=== PATIENT | female | born 1985 | race Caucasian/White ===

== ENCOUNTER 2019-02-06 13:30 | Emergency (ER) | payer BC ==
--- NOTE | 2019-02-06 14:52 | PDOC ---
Attending Attestation - Resident Resident Name: uRben Romero - ED Attending Attestation I have performed the following: I have examined & evaluated the patient, The case was reviewed & discussed with the resident, I agree w/resident's findings & plan, Exceptions are as noted - HPI HPI: 02/06/19 16:31 33yo female with a 3 week hx of L sided cp. No f/c. No cough. No assoc sob. No trauma. States she has been able to work out over the last 3 weeks without inducing the pain or worsening the pain. Pt denies abd pain. States she did have nausea yesterday after eating wings. Pt states yesterday she did feel a burning sensation in her chest, however her cp is not always assoc with eating. Pt states sometimes it is worse when laying flat at night. Pt states she has had anixety and felt stressed in the past, states her job is stressful. Pt denies v/d. No abd pain today. Pt is nontoxic in appearance. Pt denies palpitations. No pleuritic component to pain. PERC negative. No fam hx of sudden cardiac or cardiac problems. No fam hx of PE. - Physicial Exam PE: 02/06/19 16:33 Gen: aaox3, nad neck: no thyromegaly heart: +s1s2 reg, no chest wall ttp lungs: cta b/l abd: soft, nt/nd +bs ext: no c/c/e - Medical Decision Making 02/06/19 14:52 I, Dr. Rajwinder Johnson, DO, attest that this document has been prepared under my direction and personally reviewed by me in its entirety. I further attest, that it accurately reflects all work, treatment, procedures and medical decision -making performed by me. 02/06/19 16:35 a/p: 33yo female with 3 weeks of chest pain -will send labs, ekg, cxr -poss gi component - will give GI cocktail -will monitor and reassess -pt is nontoxic in appearance 02/06/19 16:36 cbc reviewed cxr clear 02/06/19 17:08 trop negative PERC negative pt stable for dc to home 02/06/19 17:14 pt currently sitting up in NAD discussed stress control at home and stress relievers answered all qustions pt will follow up with her PMD Heart Score/ECG Review - ECG Intrepretation Comment:: 02/06/19 14:52 sinus at 68, nl axis, nl interval, no acute st/t wave findings
[2019-02-06 15:18] LABS: BASO % 1.2 % (0-2.0); EOS % 0.8 % (0-4.5); HEMATOCRIT 41.2 % (32.4-45.2); MCH 30.9 pg (25.7-33.7); MCHC 33.9 g/dl (32.0-36.0); MEAN CELL VOLUME 91.1 fl (80-96); MONO % 6.6 % (3.8-10.2); NEUT % 59.4 % (42.8-82.8); PLATELET COUNT 271 K/MM3 (134-434); RBC 4.52 M/mm3 (3.60-5.2); RDW 12.1 % (11.6-15.6); WHITE BLOOD COUNT 7.9 K/mm3 (4.0-10.8)
[2019-02-06 15:19] VITALS: BP 113/74; PULSE 70; TEMP 97.9; BMI 34.0
--- NOTE | 2019-02-06 15:24 | PDOC ---
History of Present Illness - General Chief Complaint: Chest Pain Stated Complaint: CHEST PAIN X 3-4 WEEKS Time Seen by Provider: 02/06/19 14:20 History Source: Patient Exam Limitations: No Limitations - History of Present Illness Initial Comments: 02/06/19 15:20 33F with no PMH who presents to the ER with complaints of 3 weeks of chest pain. The patient states that she's had intermittent L sided parasternal CP without radiation, palliative or exacerbating factors, atraumatic, nonreproducible, nonexertional pressure-like pain. She also describes unrelated L arm tingling and L face tingling. She admits to having an anxiety attack 1.5 years ago and states that it felt similar to her current presentation. She admits to stressors in her life. She denies family history of cardiac disease, DVT/PE, recent travel, hx of ca, hx of recent surgery. Past History - Past Medical History Allergies/Adverse Reactions: Allergies Allergy/AdvReac Type Severity Reaction Status Date / Time Penicillins Allergy Unknown Verified 02/06/19 13:31 shrimp Allergy Unknown Verified 02/06/19 13:31 Review of Systems - Review of Systems Able to Perform ROS?: Yes Comments:: 02/06/19 15:25 GENERAL/CONSTITUTIONAL: No fever or chills. No weakness. HEAD, EYES, EARS, NOSE AND THROAT: No change in vision. No ear pain or discharge. No sore throat. CARDIOVASCULAR: + for CP. No palpitations or lightheadedness. RESPIRATORY: No cough, wheezing, shortness of breath, or hemoptysis. GASTROINTESTINAL: No nausea, vomiting, diarrhea, constipation, or abdominal pain. GENITOURINARY: No dysuria, frequency, hematuria, or change in urination. MUSCULOSKELETAL: No joint or muscle swelling or pain. No neck or back pain. SKIN: No rash or lesions. NEUROLOGIC: + for L arm and L face tingling. No headache, numbness, focal weakness, loss of consciousness, or change in strength/sensation. Is the patient limited Upper Sorbian proficient: No *Physical Exam - Physical Exam Comments: 02/06/19 15:29 GENERAL: Well developed, well nourished. Awake and alert. No acute distress. HEENT: Normocephalic, atraumatic. Hearing grossly normal. Moist mucous membranes. PERRLA, EOMI. No conjunctival pallor. Sclera are non-icteric. NECK: Supple. Full ROM. No JVD. CARDIOVASCULAR: Regular rate and rhythm. No murmurs, rubs, or gallops. PULMONARY: No evidence of respiratory distress. Lungs clear to auscultation bilaterally. No wheezing, rales or rhonchi. ABDOMINAL: Soft. Non-tender. Non-distended. No rebound or guarding. MUSCULOSKELETAL: Normal range of motion at all joints. No bony deformities or tenderness. EXTREMITIES: No cyanosis. No clubbing. No edema. No calf tenderness or swelling. SKIN: Warm and dry. Normal capillary refill. No rashes. No jaundice. NEUROLOGICAL: Alert, awake, appropriate. Cranial nerves 2-12 intact. No deficits to light touch and temperature in face, upper extremities and lower extremities. 5/5 strength in deltoids, biceps, triceps, quadriceps, hamstrings, and gastrocnemius. Normoreflexic in the upper and lower extremities. Normal speech. Gait is normal without ataxia. PSYCHIATRIC: Cooperative. Good eye contact. Appropriate mood and affect. ED Treatment Course - LABORATORY CBC & Chemistry Diagram: 02/06/19 14:25 02/06/19 15:05 - RADIOLOGY Radiology Studies Ordered: Category Date Time Status CHEST PA & LAT [RAD] Stat Radiology 02/06/19 14:31 Ordered Medical Decision Making - Medical Decision Making 02/06/19 15:29 33F with no PMH, well appearing, presents with intermittent CP x 3 weeks. PE unremarkable. PERC negative. EKG unremarkable. Fam hx unremarkable. Will order labs and CXR to r/o ACS. 02/06/19 16:23 CXR negative on preliminary read. Labs unremarkable. Troponin pending. 02/06/19 17:14 Trop negative. Will d/c with PCP f/u. *DC/Admit/Observation/Transfer Diagnosis at time of Disposition: Atypical chest pain - Discharge Dispostion Disposition: HOME Condition at time of disposition: Good Decision to Admit order: No - Referrals Referrals: [facility] [place] [Provider Group] - Patient Instructions Printed Discharge Instructions: DI for Atypical Chest Pain Additional Instructions: Your ER visit is not complete until your follow up with your primary care physician. Please follow up with your primary care physician in 1-2 days. Please return to the ER if you have any signs or symptoms of chest pain, shortness of breath, uncontrollable fever, chills, nausea, vomiting, numbness, tingling, or weakness in any part of your body, changes in vision, or slurred speech. Please take your medications as prescribed. Please return to the ER if symptoms persist, worsen, or new symptoms arise. - Post Discharge Activity
[2019-02-06 16:12] LABS: ALBUMIN 4.5 g/dl (3.4-5.0); ALK PHOS 55 U/L (45-117); ANION GAP 15 MMOL/L (8-16); BILIRUBIN,TOTAL 0.5 mg/dl (0.2-1); BLOOD UREA NITROGEN 12 mg/dl (7-18); CALCIUM 9.4 mg/dl (8.5-10); CHLORIDE 102 mmol/L (98-107); CO2 22 mmol/L (21-32); CREATININE 0.8 mg/dl (0.55-1.3); GLUCOSE,RANDOM 84 mg/dl (74-106); POTASSIUM 4.3 mmol/L (3.5-5.1); SGOT/AST 22 U/L (15-37); SGPT/ALT 15 U/L (13-61); SODIUM 139 mmol/L (136-145); TOT PROT 7.4 g/dl (6.4-8.2)
[2019-02-06] MEDS ORDERED: MAG HYDROX/AL HYDROX/SIMETH -MYLANTA- ORAL SUSPENSION PO ONE (16:32)
[2019-02-06] MEDS ORDERED: MAG HYDROX/AL HYDROX/SIMETH 30 ML UNIT-DOSE CUP ONE (16:45)
--- NOTE | 2019-02-07 11:40 | EKG ---
Test Reason : Blood Pressure : / mmHG Vent. Rate : 068 BPM Atrial Rate : 068 BPM P-R Int : 140 ms QRS Dur : 096 ms QT Int : 414 ms P-R-T Axes : 015 049 040 degrees QTc Int : 440 ms NORMAL SINUS RHYTHM NORMAL ECG NO PREVIOUS ECGS AVAILABLE Confirmed by Dru Harrell MD ([id number]) on 02/07/2019 11:40:19 AM Referred By: Confirmed By:Dru Harrell MD
== END 2019-02-06 17:23 | disposition home or self-care (01) ==
LOC: FER 13:30
DX: R07.89 Other chest pain (principal); Z88.0 Allergy status to penicillin; Z91.013 Allergy to seafood
CPT/HCPCS: 36415; 71046-TC-FY; 80053; 81025; 82550; 84484; 85025; 93005; 99282-25